=== PATIENT | female | born 1950 | race Caucasian/White ===

== ENCOUNTER 2021-03-20 06:09 | Outpatient (REF) | payer MEDICARE, OTHER, SELFPAY ==
[2021-03-20 11:46] LABS: Cholesterol 170 mg/dL; Glucose Fasting 86 mg/dL (60-99); HDL Cholesterol 68 mg/dL; LDL Cholesterol Calculated 88 mg/dl; Triglycerides 74 mg/dL
== END 2021-03-20 06:10 | disposition home or self-care (01) ==
LOC: HO.HMGCLDS 06:09
PROVIDERS: PCP Family Medicine; Visit Provider Nurse Practitioner Family
DX: E78.5 Hyperlipidemia, unspecified (principal)
CPT/HCPCS: 36415; 80061; 82947

== ENCOUNTER 2021-04-20 09:14 | Outpatient (REF) | payer MEDICARE, OTHER, SELFPAY ==
[2021-04-20 11:58] LABS: Anion Gap 12 (12-20); Blood Urea Nitrogen 9 mg/dL (9-16); Calcium 9.8 mg/dL (8.4-10.2); Carbon Dioxide 29 mmol/L (22-29); Chloride 106 mmol/L (96-108); Estimated Glomerular Filt Rate > 60; Glucose Random 83 mg/dL (60-115); Magnesium 2.3 mg/dL (1.6-2.6); Potassium 4.9 mmol/L (3.3-5.1); Sodium 142 mmol/L (135-145)
[2021-04-20 12:19] LABS: Ferritin 99 ng/mL (10-250); Thyroid Stimulating Hormone 0.53 uIU/mL (0.32-4.0)
[2021-04-20 14:22] LABS: MANUAL DIFF FLAG NO
[2021-04-20 14:26] LABS: Basophils Percent Auto 0.4 % (0-2); Eosinophils Absolute Auto 0.1 X10*3/uL (0.0-0.4); Eosinophils Percent Auto 1.1 % (0-4); Hematocrit 38.8 % (37-47); Hemoglobin 13.1 g/dl (12.0-16.0); Imm Gran Abs Auto 0.01 X10*3/uL (0.00-0.03); Imm Gran Pct Auto 0.2 % (0.0-0.4); Lymphocytes Percent Auto 20.3 % (20-40); Mean Corpuscular HGB Conc 33.8 g/dl (31.0-35.0); Mean Corpuscular Hemoglobin 31.1 pg (27.0-33.0); Mean Corpuscular Volume 92.2 fL (80-98); Mean Platelet Volume 11.3 fL (9.4-12.3); Monocytes Absolute Auto 0.3 X10*3/uL (0.1-1.2); Monocytes Percent Auto 7.2 % (2-11); Neutrophils Absolute Auto 3.4 X10*3/uL (2.0-8.3); Neutrophils Percent Auto 70.8 % (45-73); Platelet Count 227 X10*3/uL (160-400); Red Blood Count 4.21 X10*6/uL (4.20-5.50); Red Cell Distribution Width 13.2 % (11.0-16.0); White Blood Count 4.7 X10*3/uL (4.8-10.8)
== END 2021-04-20 09:15 | disposition home or self-care (01) ==
LOC: HO.HMGCLDS 09:14
PROVIDERS: PCP Family Medicine; Visit Provider Nurse Practitioner Family
DX: Z00.00 Encounter for general adult medical examination without abnormal findings (principal); G47.62 Sleep related leg cramps
CPT/HCPCS: 36415; 80048; 82306; 82728; 83735; 84443; 85025

== ENCOUNTER 2022-06-06 06:05 | Outpatient (REF) | payer MEDICARE, OTHER, SELFPAY ==
[2022-06-06 11:12] LABS: MANUAL DIFF FLAG NO
[2022-06-06 11:17] LABS: Basophils Percent Auto 0.6 % (0-2); Eosinophils Absolute Auto 0.2 X10*3/uL (0.0-0.4); Eosinophils Percent Auto 3.9 % (0-4); Hematocrit 40.8 % (37.0-47.0); Hemoglobin 13.6 g/dl (12.0-16.0); Imm Gran Abs Auto 0.01 X10*3/uL (0.00-0.03); Imm Gran Pct Auto 0.2 % (0.0-0.4); Lymphocytes Absolute Auto 1.3 X10*3/uL (1.2-4.9); Lymphocytes Percent Auto 25.8 % (20-40); Mean Corpuscular HGB Conc 33.3 g/dl (31.0-35.0); Mean Corpuscular Hemoglobin 30.8 pg (27.0-33.0); Mean Corpuscular Volume 92.3 fL (80.0-98.0); Mean Platelet Volume 10.9 fL (9.4-12.3); Monocytes Absolute Auto 0.4 X10*3/uL (0.1-1.2); Neutrophils Percent Auto 61.5 % (45-73); Platelet Count 264 X10*3/uL (160-400); Red Blood Count 4.42 X10*6/uL (4.20-5.50); Red Cell Distribution Width 12.8 % (11.0-16.0); White Blood Count 4.9 X10*3/uL (4.8-10.8)
[2022-06-06 11:50] LABS: Alanine Aminotransferase 19 U/L (0-31); Albumin Level 4.3 g/dL (3.5-5.0); Alkaline Phosphatase 64 U/L (39-117); Anion Gap 15 (12-20); Aspartate Amino Transferase 23 U/L (5-31); Bilirubin Total 0.5 mg/dL (0.0-1.0); Blood Urea Nitrogen 12 mg/dL (9-16); Calcium 9.5 mg/dL (8.4-10.2); Carbon Dioxide 27 mmol/L (22-29); Chloride 105 mmol/L (96-108); Cholesterol 173 mg/dL; Estimated Glomerular Filt Rate > 60; Glucose Fasting 87 mg/dL (60-99); HDL Cholesterol 67 mg/dL; LDL Cholesterol Calculated 95 mg/dl; Potassium 4.1 mmol/L (3.3-5.1); Sodium 143 mmol/L (135-145); Total Protein 6.9 g/dL (6.5-8.0); Triglycerides 56 mg/dL
[2022-06-06 11:53] LABS: TSH reflex Free T4 1.29 uIU/mL (0.32-4.0)
== END 2022-06-06 06:06 | disposition home or self-care (01) ==
LOC: HO.HMGCLDS 06:05
PROVIDERS: PCP Internal Medicine; Visit Provider Internal Medicine
DX: Z00.00 Encounter for general adult medical examination without abnormal findings (principal); E78.5 Hyperlipidemia, unspecified
CPT/HCPCS: 36415; 80053; 80061; 82306; 84443; 85025

== ENCOUNTER 2023-05-02 06:42 | Outpatient (REF) | payer MEDICARE, OTHER, SELFPAY ==
[2023-05-02 11:19] LABS: MANUAL DIFF FLAG NO
[2023-05-02 11:38] LABS: Basophils Percent Auto 0.7 % (0-2); Eosinophils Absolute Auto 0.2 X10*3/uL (0.0-0.4); Eosinophils Percent Auto 4.4 % (0-4); Hematocrit 39.8 % (37.0-47.0); Imm Gran Abs Auto 0.01 X10*3/uL (0.00-0.03); Imm Gran Pct Auto 0.2 % (0.0-0.4); Lymphocytes Absolute Auto 1.2 X10*3/uL (1.2-4.9); Lymphocytes Percent Auto 27.1 % (20-40); Mean Corpuscular HGB Conc 32.7 g/dl (31.0-35.0); Mean Corpuscular Hemoglobin 30.7 pg (27.0-33.0); Mean Corpuscular Volume 94.1 fL (80.0-98.0); Monocytes Absolute Auto 0.3 X10*3/uL (0.1-1.2); Monocytes Percent Auto 7.2 % (2-11); Neutrophils Absolute Auto 2.8 x10*3/uL (2.0-8.3); Neutrophils Percent Auto 60.4 % (45-73); Platelet Count 245 X10*3/uL (160-400); Red Blood Count 4.23 X10*6/uL (4.20-5.50); Red Cell Distribution Width 13.2 % (11.0-16.0); White Blood Count 4.6 X10*3/uL (4.8-10.8)
[2023-05-02 12:24] LABS: Alanine Aminotransferase 17 U/L (0-31); Alkaline Phosphatase 60 U/L (39-117); Anion Gap 11 (12-20); Aspartate Amino Transferase 23 U/L (5-31); Bilirubin Total 0.4 mg/dL (0.0-1.0); Blood Urea Nitrogen 10 mg/dL (9-16); Calcium 9.2 mg/dL (8.4-10.2); Carbon Dioxide 30 mmol/L (22-29); Chloride 106 mmol/L (96-108); Cholesterol 158 mg/dL (<200); Estimated Glomerular Filt Rate > 60; Glucose Fasting 89 mg/dL (60-99); HDL Cholesterol 66 mg/dL (>40); LDL Cholesterol Calculated 83 mg/dL (<100); Potassium 4.8 mmol/L (3.3-5.1); Sodium 142 mmol/L (135-145); Total Protein 6.7 g/dL (6.5-8.0); Triglycerides 49 mg/dL (<150); Vitamin D 25-OH Total 79.4 ng/mL (>30)
== END 2023-05-02 06:43 | disposition home or self-care (01) ==
LOC: HO.HMGCLDS 06:42
PROVIDERS: PCP Internal Medicine; Visit Provider Internal Medicine
DX: E55.9 Vitamin D deficiency, unspecified (principal); E78.5 Hyperlipidemia, unspecified
CPT/HCPCS: 36415; 80053; 80061; 82306; 85025

== ENCOUNTER 2023-05-15 07:51 | Outpatient (AMB) | payer MEDICARE, OTHER, SELFPAY ==
[2023-05-15 08:04] VITALS: BP 112/62; PULSE 64; O2SAT 99; BMI 25.6
--- NOTE | 2023-05-15 08:04 | MHC.PC.OV ---
Vital Signs 05/15/23 08:04 Height 5 ft 4 in Weight 149 lb BMI 25.6 BP 112/62 Blood Pressure Location Lt brachial Position Sitting Pulse 64 Pulse Source Pulse Oximeter Pulse Oximetry (%) 99 Oxygen Delivery Method Room Air Intake Visit Reasons: PE Intake Note: Pt is here today for PE. Allergies ciprofloxacin [From Cipro] Adverse Reaction (Verified 05/15/23 08:08) Stomach Upset tetracycline Adverse Reaction (Verified 05/15/23 08:08) hives Medication List - Last Reconciled 05/15/23 by Sydni Abdalla MD atorvastatin 20 mg PO DAILY [estradiol 0.12] fluticasone propionate 50 mcg/actuation 2 sprays intranasal DAILY miscellaneous medical supply 1 ea miscellaneous .qd multivitamin 1 tab PO DAILY omega 2-ojt-chp-fish oil 300-1,000 mg (Fish Oil) 1 cap PO DAILY Tobacco use date assessed: 05/15/23 Fall risk assessment: No Falls in past year Last assessed Fall Risk: 05/15/23 Dental Screening Dental Screen Date: 05/15/23 Did you have a dental visit in the last 12 months?: Yes Did you have a dental problem in the last 6 months where you did not have access to dental care?: No Was dental information given to patient?: Patient has dentist HPI PE HPI Details Pt presents for PE. Pt c/o joint stiffness in AM lasting 30 min. Pt exercises regularly walking daily. PFSH Social History Household Members Other:: retired RN, Housing: House Patient Tobacco Use Status: Never used Tobacco e-Cigarette/Vaping Use: Never Used Second Hand Smoke Exposure: No service: No Current occupational status: retired Cognitive needs: No Hearing needs: No Vision needs: Yes Questionnaire Thrive Questionnaire Date Thrive assessed: 11/14/22 AUDIT C Alcohol Use Questionnaire (AUDIT-C) 1. How often do you have a drink containing alcohol?: Never 3. How often do you have six or more drinks on one occasion?: Never Total Score: 0 ELIANA-7 AMB Questionnaire ELIANA-7 Date ELIANA - 7 assessed: 11/14/22 Source: Developed by Drs. Ravindra Myles, Eliana Haley, Miguelito Perez and colleagues, with an educational jacquelyn from [employer]. Review of Systems Const All systems reviewed & are unremarkable except as noted in HPI and below Reports no additional complaints Eyes Reports no additional complaints ENT Reports no additional complaints Card Reports no additional complaints Resp Reports no additional complaints GI Reports no additional complaints Reports no additional complaints Physical exam (Primary Care) Vital Signs: Last Vital Signs Pulse 64 05/15/23 08:04 BP 112/62 05/15/23 08:04 Pulse Ox 99 05/15/23 08:04 Oxygen Delivery Method Room Air 05/15/23 08:04 BMI result Body Mass Index 25.6 Tobacco/Smoking Status: Tobacco use Status Tobacco use date assessed 05/15/23 05/15/23 08:15 Patient Tobacco Use Status Never used Tobacco 05/15/23 08:15 e-Cigarette/Vaping Use Never Used 05/15/23 08:07 Thrive Assessment: Date of Thrive Assessment Date Thrive assessed 11/14/22 05/15/23 08:07 Const General: no acute distress HENMT Head: Yes normal to inspection Ears: hearing grossly normal bilaterally Face and sinus: Yes normal facial exam Mouth: Normal oral and palatal mucosa present Eyes General: appearance normal, both eyes and all related structures Neck Neck: Yes no lymphadenopathy and Yes supple Resp Effort & Inspection: normal respiratory effort Auscultation: clear to auscultation bilaterally Cardio Rhythm: regular rhythm Heart sounds: S1 normal heart sound present and S2 normal heart sound present GI Inspection: Yes normal to inspection Palpation (GI): Soft to palpation Assessment and Plan Assessment & Plan (1) Hyperlipidemia: Code(s): E78.5 - Hyperlipidemia, unspecified Plan: pt will lower Atorvastatin to 20 mg and repeat lipids in 3 months (2) Annual physical exam: Comment: Patient will schedule DEXA at [facility] Code(s): Z00.00 - Encounter for general adult medical examination without abnormal findings Plan: well balanced diet, regular exercise, PE in 1 year (3) Hx of colonoscopy: Comment: [facility], 2014 normal, negative Cologuard 2022 Code(s): Z98.890 - Other specified postprocedural states (4) Hx of screening mammography: Comment: 2021 [facility] Code(s): Z92.89 - Personal history of other medical treatment (5) Postmenopausal: Comment: DEXA nl 2020 Code(s): Z78.0 - Asymptomatic menopausal state (6) Vitamin D deficiency: Code(s): E55.9 - Vitamin D deficiency, unspecified Orders: Orders Rheumatoid Factor 3 Months E78.5 - Hyperlipidemia, unspecified Cyclic Citrullinated Peptide 3 Months E78.5 - Hyperlipidemia, unspecified Lipid Panel 365 Days E55.9 - Vitamin D deficiency, unspecified, E78.5 - Hyperlipidemia, unspecified, Z00.00 - Encounter for general adult medical examination without abnormal findings Vitamin D 25-OH Total 365 Days E55.9 - Vitamin D deficiency, unspecified, E78.5 - Hyperlipidemia, unspecified, Z00.00 - Encounter for general adult medical examination without abnormal findings Lipid Panel 3 Months E78.5 - Hyperlipidemia, unspecified Comprehensive [place]. Panel Fast 3 Months E78.5 - Hyperlipidemia, unspecified Comprehensive [place]. Panel Fast 365 Days E55.9 - Vitamin D deficiency, unspecified, E78.5 - Hyperlipidemia, unspecified, Z00.00 - Encounter for general adult medical examination without abnormal findings Complete Blood Count Auto Diff 365 Days E55.9 - Vitamin D deficiency, unspecified, E78.5 - Hyperlipidemia, unspecified, Z00.00 - Encounter for general adult medical examination without abnormal findings TSH reflex Free T4 365 Days E55.9 - Vitamin D deficiency, unspecified, E78.5 - Hyperlipidemia, unspecified, Z00.00 - Encounter for general adult medical examination without abnormal findings Medications: New atorvastatin 20 mg PO DAILY 90 tabs 1RF Discontinued atorvastatin Discontinued Reason: Doctor's Order 40 mg PO DAILY 90 tabs 3RF Coding Level of Care Code Est Pt Prev Care >65y(50846) Diagnoses Hyperlipidemia E78.5 Annual physical exam Z00.00 Hx of colonoscopy Z98.890 Hx of screening mammography Z92.89 Postmenopausal Z78.0 Vitamin D deficiency E55.9
== END 2023-05-15 08:39 | disposition home or self-care (01) ==
PROVIDERS: Visit Provider Internal Medicine
DX: Z00.00 Encounter for general adult medical examination without abnormal findings (principal); E78.5 Hyperlipidemia, unspecified; Z98.890 Other specified postprocedural states; Z92.89 Personal history of other medical treatment; Z78.0 Asymptomatic menopausal state; E55.9 Vitamin D deficiency, unspecified
CPT/HCPCS: 99397

== ENCOUNTER 2023-07-25 13:28 | Emergency (ER) | payer MEDICARE, OTHER, SELFPAY ==
[2023-07-25 13:54] VITALS: BP 145/69; PULSE 68; RESP 18; TEMP 36.8; O2SAT 96; BMI 25.9
--- NOTE | 2023-07-25 13:54 | ED.GENADULT ---
HPI - General Adult General Chief complaint: Ear Problems Stated complaint: L Ear Infection Time Seen by Provider: 07/25/23 14:17 Source: patient Mode of arrival: ambulatory Limitations: no limitations History of Present Illness HPI narrative: 72 year old female with pmhx significant for HDL presents to the ED today with left ear pain x1 week. Reports nasal congestion and left ear pain. States that she felt left ear pop/click a few days ago. Has not noticed any drainage from the ear. No right ear pain. She has tried putting ciprofloxacin drops into her ear without relief. Additionally reports dry cough that keeps her awake at night. She has been taking Mucinex without relief of symptoms. No known sick contacts. No other concerns at this time. Denies fever, chills, nasal congestion, sore throat, headache, dizziness, neck pain, shortness of breath, chest pain, wheezing, nausea/vomiting. No history of diabetes. No history of recent flights or scuba diving. Related Data Home Medications Medication Instructions Recorded Confirmed multivitamin 1 tab PO DAILY 05/14/22 05/15/23 omega 1-fye-dwz-fish oil 300 1 cap PO DAILY 05/14/22 05/15/23 mg-1,000 mg capsule (Fish Oil) estradiol vaginal PRN 05/15/23 05/15/23 Previous Rx's Medication Instructions Recorded fluticasone propionate 50 2 spray intranasal DAILY #54 grams 05/14/22 mcg/actuation nasal spray,suspension miscellaneous medical supply 1 ea miscellaneous .qd sauna #1 ea 05/14/22 atorvastatin 20 mg tablet 20 mg PO DAILY #90 tabs 05/15/23 amoxicillin 875 mg-potassium 1 tab PO BID 5 days #10 tabs 07/25/23 clavulanate 125 mg tablet benzonatate 100 mg capsule 100 mg PO BID PRN cough 7 days #14 07/25/23 caps Allergies Allergy/AdvReac Type Severity Reaction Status Date / Time ciprofloxacin [From Cipro] AdvReac Stomach Verified 05/15/23 08:08 Upset tetracycline AdvReac hives Verified 05/15/23 08:08 Review of Systems Review of Systems: Constitutional: No fever, chills, fatigue, night sweats, weight changes ENT/Mouth: + left ear pain, No hearing loss, nasal congestion, sinus pain, rhinorrhea, sore throat Eyes: No eye pain, swelling, redness, vision changes, discharge Cardio: No chest pain, palpitations, RAMÍREZ, orthopnea, peripheral edema Pulm: No SOB, +cough, No sputum, wheezing, dyspnea, hemoptysis GI: No nausea, vomiting, hematemesis, abdominal pain, diarrhea, constipation, hematochezia, melena : No irregular bleeding, dysuria, frequency, urgency, hesitancy, hematuria, flank pain, urinary flow changes, urinary incontinence or retention MSK: No back pain, neck pain, joint pain, myalgias Skin: No lesions, rashes Neuro: No weakness, numbness, paresthesias, LOC, dizziness, headache All other systems reviewed and are negative. [facility] Past Medical History Attestation statement: The following information was validated with the patient. Source: old records reviewed and nursing notes reviewed Social History Social History Household Members Other:: retired RN, Housing: House Patient Tobacco Use Status: Never used Tobacco e-Cigarette/Vaping Use: Never Used Second Hand Smoke Exposure: No Advance Directives: No Advance Directives Information Provided: No service: No Current occupational status: retired Cognitive needs: No Hearing needs: No Vision needs: Yes Physical Exam ED Vital Signs: Vital Signs - 24 hr 07/25/23 13:54 Temperature 98.3 F Pulse Rate 68 Respiratory Rate 18 Blood Pressure 145/69 H Pulse Oximetry 96 Oxygen Delivery Method Room Air BMI result Body Mass Index 25.9 vital signs stable, afebrile. Const General: cooperative, healthy appearing, comfortable, no acute distress, alert and awake Orientation/consciousness: patient oriented x3 Limitations: no limitations HENMT Other: + no pain on manipulation of the right pinna. No mastoid tenderness. right EAC erythematous, not edematous. TM intact without bulging, effusion or perforation. + pain on manipulation of the left pinna. No mastoid tenderness. left EAC erythematous not edematous. Effusion noted to TM with perforation at 3:00. No discharge or drainage from the ear. + posterior oropharynx erythematous, no edema, no tonsillar exudates, uvula midline, no peritonsillar masses, controlling secretions and speaking in complete sentences Head: Yes normal to inspection Ears: hearing grossly normal bilaterally General nose exam: Normal external nose present and No nasal discharge present Face and sinus: Yes normal facial exam and Yes sinuses nontender Mouth: Normal oral and palatal mucosa present Eyes General: appearance normal, both eyes and all related structures Periorbital: periorbital findings normal Eyelids: Yes eyelids normal Conjunctivae: conjunctivae normal Sclerae: sclerae normal Corneas: corneas normal EOM: EOMs intact bilaterally Neck Neck: Yes normal visual inspection, Yes full ROM and Yes no lymphadenopathy Resp Effort & Inspection: normal respiratory effort Auscultation: clear to auscultation bilaterally Cardio Rate: regular rate Rhythm: regular rhythm Skin General skin exam: no rashes or lesions noted Neuro General: patient oriented x3, gait normal and moves all extremities Extrem General: Yes normal to inspection and Yes full ROM Course Course Course Narrative: RME performed by Cleo Bravo PA-C. Patient is a 72 year old assigned female at presenting to the emergency department with cold symptoms and left ear pain. Swabs ordered. Patient placed back in the waiting room pending room availability and results. Reevaluation(s) Reevaluation #1: [id number]-- patient is declining viral and strep throat tests at this time. Presentation is consistent with acute otitis media of the left ear with TM perforation. Informed patient not to place any drops in the ear. Will send her home with Augmentin to take for the next 5 days. Educated her on the importance of following up with ENT or her PCP to ensure that the TM is healing. I have provided her with a referral to ENT. Advised patient to call them to make an appointment. I will also send ivy Veronica to pharmacy for cough. Patient has remained stable throughout ED visit today. Discussed strict return precautions. All questions answered at this time. Patient is agreeable with disposition and stable for discharge. Medical Decision Making Medical Decision Making MDM Narrative: 72 year old female with pmhx significant for HDL presents to the ED today with left ear pain x1 week. Vital signs stable, afebrile. Patient is nontoxic appearing and in no acute distress. On exam, there is pain on manipulation of the left pinna. No mastoid tenderness. left EAC erythematous not edematous. Effusion noted to TM with perforation at 3:00. No discharge or drainage from the ear. Posterior oropharynx is erythematous, no edema, uvula midline, no tonsillar exudates, controlling secretions and speaking complete sentences. Lungs are CTA bilaterally, no wheezes. Actively coughing on exam. No LAD. Clinical concern for viral syndrome, strep throat, bronchitis, otitis media, otitis externa. Unlikely malignant otitis externa, mastoiditis, [employer], retropharyngeal abscess, epiglottitis, pneumonia, pneumothorax, sinusitis. Differential Diagnosis Differential Diagnoses: The differential diagnosis associated with the presentation includes as above Admission/Observation Not indicated External Record Review External record reviewed: Inpatient record Prescription Management I considered prescription management with: Antibiotic Critical Care Time Critical Care Time Critical Care Time: No Discharge Plan Discharge Clinical Impression: Acute otitis media with perforation Patient Disposition: Home, Self-Care Instructions: Ruptured Eardrum (ED), Ear Infection (ED) Additional Instructions: You have an infection in your in her left ear termed otitis media. You also have a ruptured eardrum in the left ear. DO NOT PUT IT CIPROFLOXACIN DROPS IN THIS EAR. Augmentin is antibiotic that has been sent to your pharmacy. Take this by mouth twice daily for the next 5 days. Take this to completion and do not miss any doses as this may cause infection to worsen or return. You have also been provided with a referral to an ENT. You need to follow-up with them to ensure your ear drum has healed. CALL THEM TO MAKE AN APPOINTMENT. THEY WILL NOT CALL YOU. Ivy Veronica have also been sent to your pharmacy. Take these as needed for cough. You may also follow-up with your primary care provider as needed. If symptoms persist or worsen please return to the emergency department. The case of an emergency call 911. Prescriptions: New amoxicillin-pot clavulanate 875-125 mg tablet 1 tab PO BID 5 Days Qty: 10 0RF benzonatate 100 mg capsule 100 mg PO BID PRN (Reason: cough) 7 Days Qty: 14 0RF No Action multivitamin Tablet 1 tab PO DAILY omega 3-ktk-vqx-fish oil [Fish Oil] 300-1,000 mg capsule 1 cap PO DAILY miscellaneous medical supply Misc 1 ea miscellaneous .qd Qty: 1 0RF fluticasone propionate 50 mcg/actuation spray,suspension 2 spray intranasal DAILY Qty: 54 3RF estradiol vaginal PRN Rx Instructions: 0.12 atorvastatin 20 mg tablet 20 mg PO DAILY Qty: 90 1RF Referrals: Umer Gilmore [Physician] - 5 days Discharge Date/Time: 07/25/23 14:54
== END 2023-07-25 14:54 | disposition home or self-care (01) ==
PROVIDERS: Emergency Provider Emergency Medicine; PCP Internal Medicine
DX: H66.012 Acute suppurative otitis media with spontaneous rupture of ear drum, left ear (principal); Z79.899 Other long term (current) drug therapy; H92.02 Otalgia, left ear
CPT/HCPCS: 99282; 99283

== ENCOUNTER 2023-10-01 06:02 | Outpatient (REF) | payer MEDICARE, OTHER, SELFPAY ==
[2023-10-01 11:15] LABS: MANUAL DIFF FLAG NO
[2023-10-01 11:26] LABS: Basophils Percent Auto 0.5 % (0-2); Eosinophils Absolute Auto 0.1 X10*3/uL (0.0-0.4); Eosinophils Percent Auto 3.4 % (0-4); Hematocrit 40.7 % (37.0-47.0); Hemoglobin 13.6 g/dl (12.0-16.0); Imm Gran Abs Auto 0.01 X10*3/uL (0.00-0.03); Imm Gran Pct Auto 0.2 % (0.0-0.4); Lymphocytes Absolute Auto 1.3 X10*3/uL (1.2-4.9); Lymphocytes Percent Auto 31.5 % (20-40); Mean Corpuscular HGB Conc 33.4 g/dl (31.0-35.0); Mean Corpuscular Hemoglobin 30.6 pg (27.0-33.0); Mean Corpuscular Volume 91.7 fL (80.0-98.0); Monocytes Absolute Auto 0.3 X10*3/uL (0.1-1.2); Monocytes Percent Auto 8.2 % (2-11); Neutrophils Absolute Auto 2.3 x10*3/uL (2.0-8.3); Neutrophils Percent Auto 56.2 % (45-73); Platelet Count 248 X10*3/uL (160-400); Red Blood Count 4.44 X10*6/uL (4.20-5.50); Red Cell Distribution Width 12.9 % (11.0-16.0); White Blood Count 4.2 X10*3/uL (4.8-10.8)
[2023-10-01 11:43] LABS: Alanine Aminotransferase 17 U/L (0-31); Alkaline Phosphatase 68 U/L (39-117); Anion Gap 11 (12-20); Aspartate Amino Transferase 21 U/L (5-31); Bilirubin Total 0.4 mg/dL (0.0-1.0); Blood Urea Nitrogen 11 mg/dL (9-16); Calcium 9.2 mg/dL (8.4-10.2); Carbon Dioxide 30 mmol/L (22-29); Chloride 105 mmol/L (96-108); Cholesterol 166 mg/dL (<200); Estimated Glomerular Filt Rate > 60; Glucose Fasting 81 mg/dL (60-99); HDL Cholesterol 58 mg/dL (>40); LDL Cholesterol Calculated 99 mg/dL (<100); Potassium 4.8 mmol/L (3.3-5.1); Sodium 141 mmol/L (135-145); Total Protein 6.8 g/dL (6.5-8.0); Triglycerides 47 mg/dL (<150)
[2023-10-01 12:02] LABS: TSH reflex Free T4 1.13 uIU/mL (0.32-4.0); Vitamin D 25-OH Total 86.9 ng/mL (>30)
== END 2023-10-01 06:03 | disposition home or self-care (01) ==
LOC: HO.HMGCLDS 06:02
PROVIDERS: PCP Internal Medicine; Visit Provider Internal Medicine
DX: Z00.00 Encounter for general adult medical examination without abnormal findings (principal); E55.9 Vitamin D deficiency, unspecified; E78.5 Hyperlipidemia, unspecified
CPT/HCPCS: 36415; 80053; 80061; 82306; 84443; 85025

== ENCOUNTER 2023-11-10 11:14 | Outpatient (AMB) | payer MEDICARE, OTHER, SELFPAY ==
--- NOTE | 2023-11-10 11:17 | A.OFFPC_ITS ---
Vital Signs 11/10/23 11:18 Height 5 ft 4 in Weight 135 lb BMI 23.2 BP 106/72 Blood Pressure Location Lt brachial Position Sitting Pulse 76 Pulse Source Pulse Oximeter Pulse Oximetry (%) 97 Oxygen Delivery Method Room Air Intake Visit Reasons: Lab follow up Intake Note: Pt is here today for a follow up visit. Allergies ciprofloxacin [From Cipro] Adverse Reaction (Verified 11/10/23 11:20) Stomach Upset tetracycline Adverse Reaction (Verified 11/10/23 11:20) hives Medication List - Last Reconciled 11/10/23 by Sydni Abdalla MD atorvastatin 20 mg PO DAILY [estradiol 0.12 mg/ml insert 4 clicks ( 1 ml) vaginally every Friday and ] fluticasone propionate 50 mcg/actuation 2 sprays intranasal DAILY miscellaneous medical supply 1 ea miscellaneous .qd multivitamin 1 tab PO DAILY omega 1-oqa-tik-fish oil 300-1,000 mg (Fish Oil) 1 cap PO DAILY Tobacco use date assessed: 11/10/23 Fall risk assessment: No Falls in past year Last assessed Fall Risk: 11/10/23 Dental Screening Dental Screen Date: 11/10/23 Did you have a dental visit in the last 12 months?: Yes Did you have a dental problem in the last 6 months where you did not have access to dental care?: No Was dental information given to patient?: Patient has dentist HPI Lab follow up HPI Details Patient presents for the follow-up of hyperlipidemia controlled on atorvastatin. [facility] Social History Household Members Other:: retired RN, Housing: House Patient Tobacco Use Status: Never used Tobacco e-Cigarette/Vaping Use: Never Used Second Hand Smoke Exposure: No service: No Current occupational status: retired Cognitive needs: No Hearing needs: No Vision needs: Yes Questionnaire PHQ-9 Over the last 2 weeks, how often have you been bothered by any of the following problems? 1. Little interest or pleasure in doing things: not at all 2. Feeling down, depressed, or hopeless: not at all 3. Trouble falling or staying asleep, or sleeping too much: not at all 4. Feeling tired or having little energy: not at all 5. Poor appetite or overeating: not at all 6. Feeling bad about yourself - or that you are a failure or have let yourself or your family down: not at all 7. Trouble concentrating on things, such as reading the newspaper or watching television: not at all 8. Moving or speaking so slowly that other people could have noticed. Or the opposite - being so fidgety or restless that you have been moving around a lot more than usual: not at all 9. Thoughts that you would be better off or of hurting yourself in some way: not at all Total score: 0 Depression Screening Interpretation: Negative Depression Screening Done: Yes Source: Developed by Drs. Ravindra Myles, Eliana Haley, Miguelito Perez and colleagues, with an educational jacquelyn from [employer]. Thrive Questionnaire Date Thrive assessed: 11/10/23 I am a: Patient What is your living situation today?: I have a steady place to live Within the past 12 months, did the food you bought not last and you didn't have the money to get more?: Never true Within the past 12 months, did you worry whether your food would run out before you got money to buy more?: Never true Do you have trouble paying for medicines?: No Do you have trouble getting transportation to medical appointments?: No Do you have trouble paying your heating and electricity bill?: No Do you have trouble taking care of your child, family member or friend?: No Do you have trouble with day-to-day activities such as bathing, preparing meals, shopping, managing finances, etc.?: No Are you currently unemployed and looking for a job?: No Are you interested in more education?: No Please select the resources that you would like help with: None THRIVE Score: 0 AUDIT C Alcohol Use Questionnaire (AUDIT-C) 1. How often do you have a drink containing alcohol?: Never 3. How often do you have six or more drinks on one occasion?: Never Total Score: 0 ELIANA-7 AMB Questionnaire ELIANA-7 Date ELIANA - 7 assessed: 11/10/23 Feeling nervous, anxious, or on edge: 0 = Not at all Not being able to stop or control worryin = Not at all Worrying too much about different things: 0 = Not at all Trouble relaxin = Not at all Being so restless that it is hard to sit still: 0 = Not at all Becoming easily annoyed or irritable: 0 = Not at all Feeling afraid as if something awful might happen: 0 = Not at all Total ELIANA-7 score (0-4 normal; 5-9 mild; 10-14 moderate; 15-21 severe): 0 Source: Developed by Drs. Ravindra Myles, Eliana Haley, Miguelito Perez and colleagues, with an educational jacquelyn from [employer]. Review of Systems Const All systems reviewed & are unremarkable except as noted in HPI and below Eyes Reports no additional complaints ENT Reports no additional complaints Card Reports no additional complaints Resp Reports no additional complaints GI Reports no additional complaints Reports no additional complaints Physical exam (Primary Care) Vital Signs: Last Vital Signs Pulse 76 11/10/23 11:18 BP 106/72 11/10/23 11:18 Pulse Ox 97 11/10/23 11:18 Oxygen Delivery Method Room Air 11/10/23 11:18 BMI result Body Mass Index 23.2 Tobacco/Smoking Status: Tobacco use Status Tobacco use date assessed 11/10/23 11/10/23 11:28 Patient Tobacco Use Status Never used Tobacco 11/10/23 11:28 e-Cigarette/Vaping Use Never Used 11/10/23 11:28 PHQ-9: PHQ-9 Score PHQ-9: Total score 0 11/10/23 11:28 Depression Screening Interpretation: Negative Thrive Assessment: Date of Thrive Assessment Date Thrive assessed 11/10/23 11/10/23 11:28 Const General: no acute distress HENMT Head: Yes normal to inspection Throat: Yes posterior oropharynx normal Eyes General: appearance normal, both eyes and all related structures Resp Effort & Inspection: normal respiratory effort Auscultation: clear to auscultation bilaterally Cardio Rhythm: regular rhythm Heart sounds: S1 normal heart sound present and S2 normal heart sound present Assessment and Plan Assessment & Plan (1) Hyperlipidemia: Code(s): E78.5 - Hyperlipidemia, unspecified Plan: Continue low-cholesterol diet and atorvastatin, physical in 6 months with a fasting labs (2) Postmenopausal atrophic vaginitis: Code(s): N95.2 - Postmenopausal atrophic vaginitis Plan: Continue estradiol vaginal cream Orders: Orders Comprehensive [place]. Panel Fast 6 Months E78.5 - Hyperlipidemia, unspecified Lipid Panel 6 Months E78.5 - Hyperlipidemia, unspecified Complete Blood Count Auto Diff 6 Months E78.5 - Hyperlipidemia, unspecified Medications: Changed From [estradiol] 0.12 mg/ml insert 4 clicks ( 1 ml) vaginally every Friday and PRN To [estradiol] 0.12 mg/ml vaginally; 0.12 mg/ml insert 4 clicks ( 1 ml) vaginally every Friday and 30 mL 3RF Coding Level of Care Code Est Pt Level 3 (01345) Diagnoses Hyperlipidemia E78.5 Postmenopausal atrophic vaginitis N95.2
[2023-11-10 11:18] VITALS: BP 106/72; PULSE 76; O2SAT 97; BMI 23.2
== END 2023-11-10 12:26 | disposition home or self-care (01) ==
PROVIDERS: PCP Internal Medicine; Visit Provider Internal Medicine
DX: E78.5 Hyperlipidemia, unspecified (principal); N95.2 Postmenopausal atrophic vaginitis
CPT/HCPCS: 99213

== ENCOUNTER 2024-03-10 08:39 | Outpatient (AMB) | payer MEDICARE, OTHER, SELFPAY ==
--- NOTE | 2024-03-10 08:50 | AM.OFFWIN_ITS ---
Intake Vital Signs 03/10/24 08:51 Height 5 ft 4 in BP 118/74 Blood Pressure Location Rt brachial Position Sitting Pulse 76 Pulse Source Pulse Oximeter Temp 97.9 F Temp Source Oral Pulse Oximetry (%) 97 Oxygen Delivery Method Room Air Intake Visit Reasons: possibly sinus infection Intake Note: pt is here for possibly sinus infection Patient Tobacco Use Status: Never used Tobacco Allergies ciprofloxacin [From Cipro] Adverse Reaction (Verified 03/10/24 08:51) Stomach Upset tetracycline Adverse Reaction (Verified 03/10/24 08:51) hives HPI HPI Comments History of Present Illness Details Patient is a 73yo F who presents with > 1 week sinus complaint She has hx of sinus infections in past States all sinus related Initially had chills/fever but they resolved No cough, CP or SOB +sinus pressure, congestion, R ear pain, ST No difficulty swallowing Using nasal spray but + decreased hearing No pain scale given [facility] Social History Household Members Other:: retired RN, Housing: House Patient Tobacco Use Status: Never used Tobacco e-Cigarette/Vaping Use: Never Used Second Hand Smoke Exposure: No service: No Current occupational status: retired Cognitive needs: No Hearing needs: No Vision needs: Yes Review of Systems Const Denies chills and Denies fever(s) ENT Reports otalgia, Reports nasal discharge, Reports sinus pain, Reports sinus pressure, Reports sore throat and Denies throat swelling Card Denies chest pain and Denies dyspnea Resp Denies cough and Denies dyspnea Musc Denies myalgias Aller/Immun Denies throat swelling Physical Exam Vital Signs: Last Vital Signs Temp 97.9 F 03/10/24 08:51 Pulse 76 03/10/24 08:51 BP 118/74 03/10/24 08:51 Pulse Ox 97 03/10/24 08:51 Oxygen Delivery Method Room Air 03/10/24 08:51 General: Non-toxic, NAD. Speaking full sentences. Skin: Warm dry throughout Eye: EOMI HENT: Airway patent. Uvula midline. No pharyngeal erythema or edema. No [employer]. + sinus tenderness maxillary bilaterally. No frontal or ethmoid tenderness to palpation Bilateral canals clear. + fluid behind bilateral TMs. L TM more erythematous than R without bulgingor TM perforation. No hemotympanum noted. Respiratory: CTA bilaterally. No wheezes, rales or rhonchi Cardiac: RRR. No murmur MSK: Full ROM extremities. Neurology: A/O. No aphasia or facial droop. Gait without abnormality Psych: Good mood and affect Assessment & Plan Assessment & Plan (1) Sinusitis: Code(s): J32.9 - Chronic sinusitis, unspecified Qualifiers: Sinusitis location: maxillary Chronicity: acute Recurrence: non- recurrent Qualified Code(s): J01.00 - Acute maxillary sinusitis, unspecified Plan: Patient seen and evaluated. Augmentin to pharmacy Continue nasal spray Patient gave verbal understanding and had no additional questions or concerns at time of discharge All questions answered Medications: New amoxicillin-pot clavulanate 875-125 mg 1 tab PO BID 14 tabs 0RF Coding Level of Care Code Est Pt Level 3 (51725) Diagnoses Acute non-recurrent maxillary sinusitis J01.00 Sinusitis location: maxillary Chronicity: acute Recurrence: non-recurrent
[2024-03-10 08:51] VITALS: BP 118/74; PULSE 76; TEMP 36.6; O2SAT 97
== END 2024-03-10 09:36 | disposition home or self-care (01) ==
PROVIDERS: PCP Internal Medicine; Visit Provider Physician Assistant
DX: J01.00 Acute maxillary sinusitis, unspecified (principal)
CPT/HCPCS: 99213

== ENCOUNTER 2024-05-21 06:06 | Outpatient (REF) | payer MEDICARE, OTHER, SELFPAY ==
[2024-05-21 10:12] LABS: MANUAL DIFF FLAG NO
[2024-05-21 10:23] LABS: Basophils Percent Auto 0.4 % (0-2); Eosinophils Absolute Auto 0.1 X10*3/uL (0.0-0.4); Eosinophils Percent Auto 2.8 % (0-4); Hematocrit 39.8 % (37.0-47.0); Hemoglobin 13.3 g/dl (12.0-16.0); Imm Gran Abs Auto 0.02 X10*3/uL (0.00-0.03); Imm Gran Pct Auto 0.4 % (0.0-0.4); Lymphocytes Absolute Auto 1.2 X10*3/uL (1.2-4.9); Mean Corpuscular HGB Conc 33.4 g/dl (31.0-35.0); Mean Corpuscular Hemoglobin 30.6 pg (27.0-33.0); Mean Corpuscular Volume 91.7 fL (80.0-98.0); Mean Platelet Volume 10.5 fL (9.4-12.3); Monocytes Absolute Auto 0.3 X10*3/uL (0.1-1.2); Monocytes Percent Auto 6.7 % (2-11); Neutrophils Absolute Auto 3.3 x10*3/uL (2.0-8.3); Neutrophils Percent Auto 65.7 % (45-73); Platelet Count 294 X10*3/uL (160-400); Red Blood Count 4.34 X10*6/uL (4.20-5.50); Red Cell Distribution Width 13.1 % (11.0-16.0)
[2024-05-21 10:51] LABS: Alanine Aminotransferase 17 U/L (0-31); Albumin Level 4.2 g/dL (3.5-5.0); Alkaline Phosphatase 60 U/L (39-117); Anion Gap 12 (12-20); Aspartate Amino Transferase 21 U/L (5-31); Bilirubin Total 0.5 mg/dL (0.0-1.0); Blood Urea Nitrogen 8 mg/dL (9-16); Calcium 9.6 mg/dL (8.4-10.2); Carbon Dioxide 29 mmol/L (22-29); Chloride 105 mmol/L (96-108); Cholesterol 207 mg/dL (<200); Estimated Glomerular Filt Rate > 60; Glucose Fasting 91 mg/dL (60-99); HDL Cholesterol 65 mg/dL (>40); LDL Cholesterol Calculated 128 mg/dL (<100); Sodium 141 mmol/L (135-145); Total Protein 7.2 g/dL (6.5-8.0); Triglycerides 74 mg/dL (<150)
== END 2024-05-21 06:07 | disposition home or self-care (01) ==
LOC: HO.HMGCLDS 06:06
PROVIDERS: PCP Internal Medicine; Visit Provider Internal Medicine
DX: E78.5 Hyperlipidemia, unspecified (principal)
CPT/HCPCS: 36415; 80053; 80061; 85025

== ENCOUNTER 2024-05-31 11:19 | Outpatient (AMB) | payer MEDICARE, OTHER, SELFPAY ==
[2024-05-31 11:30] VITALS: BP 126/74; PULSE 76; O2SAT 96; BMI 25.6
--- NOTE | 2024-05-31 11:30 | MHC.PC.OV ---
Vital Signs 05/31/24 11:30 Height 5 ft 4 in Weight 149 lb BMI 25.6 BP 126/74 Blood Pressure Location Lt brachial Position Sitting Pulse 76 Pulse Source Pulse Oximeter Pulse Oximetry (%) 96 Oxygen Delivery Method Room Air Intake Visit Reasons: Annual PE Intake Note: Pt is here today for PE. Allergies ciprofloxacin [From Cipro] Adverse Reaction (Verified 05/31/24 11:30) Stomach Upset tetracycline Adverse Reaction (Verified 05/31/24 11:30) hives Medication List - Last Reconciled 05/31/24 by Sydni Abdalla MD atorvastatin 20 mg PO DAILY [estradiol 0.12 mg/ml vaginally; 0.12 mg/ml insert 4 clicks ( 1 ml) vaginally every Friday and ] fluticasone propionate 50 mcg/actuation 2 sprays intranasal DAILY miscellaneous medical supply 1 ea miscellaneous .qd multivitamin 1 tab PO DAILY omega 4-tje-acz-fish oil 300-1,000 mg (Fish Oil) 1 cap PO DAILY Tobacco use date assessed: 05/31/24 Dental Screening Dental Screen Date: 11/10/23 HPI Annual PE HPI Details Pt presents for PE. PFSH Surgical History Hx of lumbosacral spine surgery Family History Father Hypertension Kidney disease Mother Hypertension Kidney disease Diabetes Social History Household Members Other:: retired RN, Housing: House Patient Tobacco Use Status: Never used Tobacco e-Cigarette/Vaping Use: Never Used Second Hand Smoke Exposure: No service: No Current occupational status: retired Cognitive needs: No Hearing needs: No Vision needs: Yes Questionnaire Thrive Questionnaire Date Thrive assessed: 11/10/23 AUDIT C Alcohol Use Questionnaire (AUDIT-C) 1. How often do you have a drink containing alcohol?: 2-4 times a month 2. How many drinks containing alcohol do you have on a typical day when you are drinking?: 1 or 2 3. How often do you have six or more drinks on one occasion?: Never Total Score: 2 ELIANA-7 AMB Questionnaire ELIANA-7 Date ELIANA - 7 assessed: 11/10/23 Source: Developed by Drs. Ravindra Myles, Eliana Haley, Miguelito Perez and colleagues, with an educational jacquelyn from [employer]. Review of Systems Const All systems reviewed & are unremarkable except as noted in HPI and below Reports no additional complaints Eyes Reports no additional complaints ENT Reports no additional complaints Card Reports no additional complaints Resp Reports no additional complaints GI Reports no additional complaints Reports no additional complaints Physical exam (Primary Care) Vital Signs: Last Vital Signs Pulse 76 05/31/24 11:30 BP 126/74 05/31/24 11:30 Pulse Ox 96 05/31/24 11:30 Oxygen Delivery Method Room Air 05/31/24 11:30 BMI result Body Mass Index 25.6 Tobacco/Smoking Status: Tobacco use Status Tobacco use date assessed 05/31/24 05/31/24 11:43 Patient Tobacco Use Status Never used Tobacco 05/31/24 11:30 e-Cigarette/Vaping Use Never Used 05/31/24 11:30 Thrive Assessment: Date of Thrive Assessment Date Thrive assessed 11/10/23 05/31/24 11:30 Const General: no acute distress HENMT Head: Yes normal to inspection Ears: hearing grossly normal bilaterally General nose exam: Normal external nose present Face and sinus: Yes normal facial exam Mouth: Normal oral and palatal mucosa present Eyes General: appearance normal, both eyes and all related structures Neck Neck: Yes no lymphadenopathy and Yes supple Resp Effort & Inspection: normal respiratory effort Auscultation: clear to auscultation bilaterally Cardio Rhythm: regular rhythm Heart sounds: S1 normal heart sound present and S2 normal heart sound present GI Inspection: Yes normal to inspection Palpation (GI): Soft to palpation Percussion: Yes normal to percussion Auscultation: normal bowel sounds Coding Level of Care Code Est Pt Prev Care >65y(43411) Diagnoses Hx of colonoscopy Z98.890 Hyperlipidemia E78.5 Annual physical exam Z00.00 Hx of screening mammography Z92.89 Assessment & Plan Assessment & Plan (1) Hx of colonoscopy: Comment: [facility], 2014 normal, negative Cologuard 2022 Code(s): Z98.890 - Other specified postprocedural states Category: Surgical Plan: PATIENT DECLINED COLONOSCOPY (2) Hyperlipidemia: Code(s): E78.5 - Hyperlipidemia, unspecified Category: Medical Plan: Continue Lipitor (3) Annual physical exam: Comment: Patient will schedule DEXA at [facility] Code(s): Z00.00 - Encounter for general adult medical examination without abnormal findings Category: Medical Plan: Well-balanced diet regular physical activity discussed with the patient. (4) Hx of screening mammography: Comment: 2021, 2023 [facility] Code(s): Z92.89 - Personal history of other medical treatment Category: Medical Plan: Up-to-date with mammogram, return in 1 year for PE Orders: Orders Lipid Panel 1 Year E55.9 - Vitamin D deficiency, unspecified, E78.5 - Hyperlipidemia, unspecified, Z00.00 - Encounter for general adult medical examination without abnormal findings Comprehensive [place]. Panel Fast 1 Year E55.9 - Vitamin D deficiency, unspecified, E78.5 - Hyperlipidemia, unspecified, Z00.00 - Encounter for general adult medical examination without abnormal findings Complete Blood Count Auto Diff 1 Year E55.9 - Vitamin D deficiency, unspecified, E78.5 - Hyperlipidemia, unspecified, Z00.00 - Encounter for general adult medical examination without abnormal findings Vitamin D 25-OH Total 1 Year E55.9 - Vitamin D deficiency, unspecified, E78.5 - Hyperlipidemia, unspecified, Z00.00 - Encounter for general adult medical examination without abnormal findings Medications: Refilled [estradiol] 0.12 mg/ml vaginally; 0.12 mg/ml insert 4 clicks ( 1 ml) vaginally every Friday and 30 mL 3RF fluticasone propionate 50 mcg/actuation 2 sprays intranasal DAILY 54 grams 3RF
== END 2024-05-31 12:23 | disposition home or self-care (01) ==
PROVIDERS: PCP Internal Medicine; Visit Provider Internal Medicine
DX: Z00.00 Encounter for general adult medical examination without abnormal findings (principal); Z98.890 Other specified postprocedural states; E78.5 Hyperlipidemia, unspecified; Z92.89 Personal history of other medical treatment

== ENCOUNTER → 2024-05-31 11:19 | Outpatient (BNVA) | payer MEDICARE, OTHER, SELFPAY | PROVIDERS: PCP Internal Medicine; Visit Provider Internal Medicine | DX: Z00.00 Encounter for general adult medical examination without abnormal findings (principal); E78.5 Hyperlipidemia, unspecified | CPT/HCPCS: 99397 ==